=== PATIENT | male | born 1980 | race African-American/Black ===

== ENCOUNTER 2016-06-22 21:29 | Emergency (ER) | payer MEDICARE, OTHER ==
[~2016-06-22 21:29] MED LIST: ACT300 PO; ANDROGEL5 TOP; ASAB PO; CO Q-10 PO; CO Q-10100 MG PO; COQ-1010 MG OR; COQ-10200 MG OR; CORTEF20 MG PO; CORTEF5 PO; DULERA 200 MCG/13 GM INH; ENULOSE PO; HUMAN GROWTH HORMONE SQ; INDO50 PO; LACT30UDL PO; LEVOTHYROXIN125 MCG PO; LOVAZA1 GM PO; MULTIVIT/MIN PO; NASONEX NAS; PROAIR HFA INH; PROVENTSOL INH; PULMICORT180 MCG INH; SOLU CORTEF IM; SOLU-CORTEF IM; SOLU-CORTEF100 MG IJ; SOLU-CORTEF100 MG IM; SYN125 PO; SYNTHROID137 MCG PO; TESTIM1 % TOP; VITAMIN D1000 UNI1 PO; VITAMIN D2000 UNIT PO; VITAMIN D31000 UNIT PO; VITAMIN E PO; VITD PO; VITE PO; [UNRECOGNIZED DRUG - OTHER] SC; [UNRECOGNIZED DRUG - OTHER] SC
[2016-06-22 21:45] LABS: BASOPHILS 1.1 %; BASOPHILS ABSOLUTE 0.04 10/3/uL (0.0-0.16); EOSINOPHILS 4.1 %; EOSINOPHILS ABSOLUTE 0.15 10/3/uL (0.0-0.53); ER CBC TAT 0 Hrs 05 Mins; HEMOGLOBIN 11.8 g/dL (13.6-17.8); LYMPHOCYTES 53.2 %; LYMPHOCYTES ABSOLUTE 1.93 10/3/uL (0.67-4.30); MEAN CORPUS HGB CONC 35.8 g/dL (32.0-36.0); MEAN CORPUSCULAR HEMOGLOB 32.1 pg (26.0-34.0); MEAN PLATELET VOLUME 10.8 fL (9.2-13.0); MONOCYTES 7.7 %; MONOCYTES ABSOLUTE 0.28 10/3/uL (0.21-1.20); NEUTROPHILS 33.9 %; NEUTROPHILS ABSOLUTE 1.23 10/3/uL (2.02-8.40); PLATELET COUNT 200 10/3/uL (150-400); RBC DISTRIBUTION WIDTH 12.2 % (12.0-16.0); RED CELL COUNT 3.68 10/6/uL (4.7-6.1); WHITE BLOOD CELLS 3.6 10/3/uL (4.5-10.5)
[2016-06-22 21:46] LABS: MANUAL DIFF NO %; MEAN CORPUSCULAR VOLUME 89.7 fL (80-100)
[2016-06-22 21:54] LABS: PROTIME (NOT ORD) 13.2 SEC (12.0-14.5)
[2016-06-22 21:55] LABS: PARTIAL THROMBO TIME 37.7 SEC (22.5-37.2)
[2016-06-22 22:02] LABS: CHEST PAIN PROFILE TAT 0 Hrs 22 Mins; CHLORIDE, SERUM 107 MMOL/L (96-112); CO2 (CARBON DIOXIDE) 26 MMOL/L (24-34); CREATININE 1.04 MG/DL (0.70-1.30); GFR AFRICAN AMERICAN 107 ML/MIN (>=60); GFR NON AFRICAN AMERICAN 92 ML/MIN (>=60); SODIUM, SERUM 139 MMOL/L (135-148); TROPONIN I <0.02 NG/ML (<0.05)
[2016-06-22 22:06] LABS: BUN (BLOOD UREA NITROGEN) 14 MG/DL (6-23); POTASSIUM, SERUM 3.7 MMOL/L (3.5-5.3)
[2016-06-22 22:07] LABS: GLUCOSE, SERUM 119 MG/DL (60-99)
[2016-06-22 23:36] LABS: D-DIMER QUANTITATIVE 0.42 ug/mLFEU (< 0.50)
== END 2016-06-23 00:14 | disposition home or self-care (01) ==
LOC: ER 21:29
PROVIDERS: Emergency Medicine
DX: R07.9 Chest pain, unspecified (principal); R06.00 Dyspnea, unspecified; E78.5 Hyperlipidemia, unspecified; J45.909 Unspecified asthma, uncomplicated; E03.9 Hypothyroidism, unspecified; Z91.048 Other nonmedicinal substance allergy status; Z91.040 Latex allergy status; Z91.038 Other insect allergy status; Z79.899 Other long term (current) drug therapy
CPT/HCPCS: 71020; 80048; 83735; 84484; 85025; 85379; 85610; 85730; 93005; 99285; A9270-GY

== ENCOUNTER 2016-07-10 17:21 | Emergency (ER) | payer MEDICARE, OTHER | END 2016-07-10 19:30 | disposition home or self-care (01) | LOC: ER 17:21 | DX: S09.90XA Unspecified injury of head, initial encounter (principal); W18.30XA Fall on same level, unspecified, initial encounter; Z91.038 Other insect allergy status; Z91.040 Latex allergy status; Z79.899 Other long term (current) drug therapy; Z91.048 Other nonmedicinal substance allergy status | CPT/HCPCS: 70450; 93005; 99284; A9270-GY ==